=== PATIENT | female | born 1950 | race Caucasian/White ===

== ENCOUNTER 2016-08-11 11:03 | Emergency (ER) | payer MEDICARE, OTHER ==
[~2016-08-11] VITALS: Ht 165.1 cm; Wt 94.5 kg
[2016-08-11] MEDS ORDERED: ALBU8HFA IH (11:33)
[2016-08-11] MEDS ORDERED: LOPE2 PO (11:33)
[2016-08-11] MEDS ORDERED: OLAN10TA3 PO (11:33)
[2016-08-11] MEDS ORDERED: AMLO-511 PO (11:33)
[2016-08-11] MEDS ORDERED: ACET-1952 PO (11:33)
[2016-08-11] MEDS ORDERED: ESOM20CA31 PO (11:33)
[2016-08-11] MEDS ORDERED: LOSA25TA21 PO (11:33)
[2016-08-11] MEDS ORDERED: FLUO-191 PO (11:33)
[2016-08-11] MEDS ORDERED: LABE200T PO (11:33)
[2016-08-11] MEDS ORDERED: HYDR25TA PO (11:33)
[2016-08-11] MEDS ORDERED: DOCU250C91 PO (11:33)
[2016-08-11 11:47] LABS: GLUCOSE,POINT OF CARE 118 MG/DL (70-110)
[2016-08-11] MEDS ORDERED: ONDANSETRON HCL 4 MG TABLET PO ONE (12:15)
[2016-08-11 12:40] VITALS: BP 151/82
== END 2016-08-11 13:01 | disposition home or self-care (01) ==
LOC: EMS 11:05
DX: J06.9 Acute upper respiratory infection, unspecified (principal); I10 Essential (primary) hypertension; Z88.0 Allergy status to penicillin; F31.9 Bipolar disorder, unspecified; F20.9 Schizophrenia, unspecified; Z79.899 Other long term (current) drug therapy
CPT/HCPCS: 81002; 82962; 99283; Q0162

== ENCOUNTER → 2018-04-21 | Outpatient (CLI) | payer MEDICARE, OTHER ==
[~2018-04-21] MED LIST: ACET-1952 PO; ALBU8HFA IH; AMLO-511 PO; DOCU250C91 PO; ESOM20CA31 PO; FLUO-191 PO; HYDR25TA PO; LABE200T6 PO; LOPE2 PO; LOSA25TA41 PO; OLAN10TA3 PO
== END | disposition home or self-care (01) ==
LOC: LABMN 09:20
PROVIDERS: ATTEND Psychiatry & Neurology Psychiatry
DX: F25.0 Schizoaffective disorder, bipolar type (principal); I10 Essential (primary) hypertension; Z79.899 Other long term (current) drug therapy
CPT/HCPCS: 83036

== ENCOUNTER 2020-12-19 13:46 | Emergency (ER) | payer MEDICARE, OTHER ==
[~2020-12-19] VITALS: Ht 165.1 cm; Wt 100.0 kg
[~2020-12-19 13:46] MED LIST changes: +AMLO-257 PO; -AMLO-511 PO; +DOCU-350 PO; -DOCU250C91 PO; -HYDR25TA PO; +HYDR25TA2 PO; +LABE200T56 PO; -LABE200T6 PO; +LOSA25TA21 PO; -LOSA25TA41 PO; -OLAN10TA3 PO; +OLAN10TA74 PO
[2020-12-19] MEDS ORDERED: TOPI25 PO (14:04)
[2020-12-19] MEDS ORDERED: FLUT16H NASAL (14:04)
[2020-12-19] MEDS ORDERED: LOSA50TA37 PO (14:04)
[2020-12-19] MEDS ORDERED: NAPR-1197 PO (14:04)
[2020-12-19] MEDS ORDERED: OMEP20 PO (14:04)
[2020-12-19] MEDS ORDERED: MULT-415 PO (14:04)
[2020-12-19] MEDS ORDERED: LORA10TA7 PO (14:04)
[2020-12-19] MEDS: ACETAMINOPHEN 500 MG TABLET PO ONE (15:12)
[2020-12-19 15:26] VITALS: BP 131/61
== END 2020-12-19 15:38 | disposition home or self-care (01) ==
LOC: EMS 14:02
DX: L03.011 Cellulitis of right finger (principal); F31.9 Bipolar disorder, unspecified; I10 Essential (primary) hypertension; F20.9 Schizophrenia, unspecified; Z88.0 Allergy status to penicillin
CPT/HCPCS: 99283

== ENCOUNTER → 2021-03-06 | Outpatient (CLI) | payer MEDICARE, OTHER ==
[~2021-03-06] MED LIST changes: -ALBU8HFA IH; -DOCU-350 PO; -ESOM20CA31 PO; -FLUO-191 PO; +FLUT16H NASAL; -LABE200T56 PO; -LOPE2 PO; +LORA10TA7 PO; +LOSA-382 PO; -LOSA25TA21 PO; +MULT-415 PO; +NAPR-1197 PO; +OMEP20 PO; +TOPI25 PO
[2021-03-06 15:25] LABS: HEMOGLOBIN A1C 6.3 % (3.8-5.6)
[2021-03-06 15:53] LABS: CHOL/HDL RATIO 2.8 (3.9-5.7)
== END | disposition home or self-care (01) ==
LOC: LABPV 12:31
PROVIDERS: ATTEND Psychiatry & Neurology Psychiatry
DX: F20.9 Schizophrenia, unspecified (principal); Z79.899 Other long term (current) drug therapy
CPT/HCPCS: 80061; 82947; 83036

== ENCOUNTER → 2022-03-17 | Outpatient (CLI) | payer MEDICARE, OTHER ==
[~2022-03-17] MED LIST changes: -FLUT16H NASAL; +FLUT16SP NASAL
[2022-03-17 17:08] LABS: HEMOGLOBIN A1C 6.3 % (3.8-5.6)
== END | disposition home or self-care (01) ==
LOC: LABMN 14:46
PROVIDERS: ATTEND Psychiatry & Neurology Psychiatry
DX: F20.9 Schizophrenia, unspecified (principal); Z79.899 Other long term (current) drug therapy
CPT/HCPCS: 80061; 82947; 83036